=== PATIENT | male | born 1955 | race Caucasian/White ===

== ENCOUNTER 2016-11-03 20:43 | Emergency (ER) | payer BC ==
[2016-11-25] MEDS ORDERED: CRESTOR20 MG PO (13:16)
[2016-11-25] MEDS ORDERED: ASPIRIN EC81 M1 PO (13:17)
[2016-11-25] MEDS ORDERED: MULTI-DAY VITAM1 TAB PO (13:17)
[2016-11-26 08:12] VITALS: BMI 34.1
== END 2016-11-04 01:07 | disposition home or self-care (01) ==
LOC: D.ER 20:43
DX: S43.004A Unspecified dislocation of right shoulder joint, initial encounter (principal); W10.9XXA Fall (on) (from) unspecified stairs and steps, initial encounter; Y93.89 Activity, other specified; Y92.018 Other place in single-family (private) house as the place of occurrence of the external cause

== ENCOUNTER 2016-11-26 05:52 | Day surgery (SDC) | payer BC ==
[~2016-11-26] VITALS: Ht 185.4 cm; Wt 117.0 kg
[~2016-11-26 05:52] MED LIST: ASPIRIN EC81 M1 PO; CRESTOR20 MG PO; MULTI-DAY VITAM1 TAB PO
[2016-11-26 08:12] VITALS: BP 137/72; Ht 185.4 cm; Wt 117.0 kg
[2016-11-26] MEDS ORDERED: DILAUDID2 MG PO (11:00)
--- NOTE | 2016-11-26 11:14 | NUR ---
VANCOMYCIN 1GM INFUSING
--- NOTE | 2016-11-26 12:44 | NUR ---
1215 IV DC WITH CATHER TIP INTACT
--- NOTE | 2016-11-27 14:00 | OP ---
PATIENT NAME: STEPHEN ROGERS MEDICAL RECORD: [id number] :55 LOCATION:[facility] ADMISSION DATE: SURGEON: FRANKY GUTIERREZ MD DATE OF OPERATION: 11/26/2016 Orthopedic Surgery Operative Note PREOPERATIVE DIAGNOSES: 1. Rotator cuff tear of the right shoulder. 2. Severe biceps tendinitis of the right shoulder. 3. Impingement syndrome of the right shoulder. 4. Acromioclavicular arthritis of the right shoulder. POSTOPERATIVE DIAGNOSES: 1. Rotator cuff tear of the right shoulder. 2. Severe biceps tendinitis of the right shoulder. 3. Impingement syndrome of the right shoulder. 4. Acromioclavicular arthritis of the right shoulder. PROCEDURES: 1. Open rotator cuff repair of the right shoulder. 2. Biceps tenodesis of the right shoulder. 3. Subacromial decompression of the right shoulder. 4. Distal clavicle excision of the right shoulder -- arthroscopic above. SURGEON: Franky Gutierrez MD ANESTHESIA: General. INTRAOPERATIVE COMPLICATIONS: None. SUMMARY OF PATHOLOGIC FINDINGS: Consistent with the preoperative MRI and the patient had the above diagnoses and pathology. OPERATIVE SUMMARY IN DETAIL: After obtaining the appropriate preoperative orthopedic surgery consent as well as anesthetic consultation, evaluation and clearance, the patient was brought to the operating room and placed on the operating table in supine position. After general laryngeal mask was administered, the patient was placed in a left lateral decubitus position. All pressure points were well padded to include down leg peroneal pad as well as axillary roll. The patient was held firmly to the operating table using the vacuum pack suction system. Right upper extremity and shoulder were then prepped and draped in routine sterile fashion. The arm was held in the Arthrex traction boom at 30 degrees of forward flexion, 30 degrees of abduction, 10 pounds of traction laterally. Arthroscopy was established in the glenohumeral joint from a posterior portal. Anterior portal was established in the anterior safe interval. Diagnostic arthroscopy revealed the above findings. A transarthroscopic rotator cuff tear portal was created to debride and decorticate the supraspinatus tendinous footprint. The biceps tendon was cut at the base and held. Attention was then turned to the subacromial space. In the subacromial space, excoriation of the coracoacromial ligament was noted. Surface tissue ablation system was utilized to denude the entire undersurface of the coracoacromial ligament as well as a release of the undersurface of the acromion as well as released the coracoacromial ligament to separate anterior arthroscopic portal, distal clavicle was excised for 1 cm. Having completed OPERATIVE REPORT [id number] STEPHEN ROGERS this, attention was turned to the rotator cuff and biceps tenodesis. Biceps tendon was identified, suture was passed and a marine pilot hole for a size 7 tenodesis screw was made in the proximal aspect of the groove and the suture to the biceps tendon was pulled through the tip and the Arthrex tenodesis screw was deployed. Having completed this, a double row rotator cuff fixation was achieved with 2 proximal rows crisscrossed and 2 distal rows resulted in excellent reapproximation of the supraspinatus tendon to the footprint. Having completed this, arthroscopic portals were closed in routine interrupted fashion using 4-0 Prolene. Sterile dressings were applied. The patient was awakened, taken to recovery room in stable condition. All final needle and sponge counts were correct. TRANSINT:[id number] Voice Confirmation ID: [id number] DOCUMENT ID: [id number] MATT OVIEDO, FRANKY CASTILLO at 1400 CC: [id number] DICTATION DATE: 11/26/16 1104 [employer] HAND: 11/26/16 1531 [facility] 11/26/[address] [facility] [address] [place] [address]
== END 2016-11-26 12:30 | disposition home or self-care (01) ==
LOC: D.OPS 05:52 → D.PAN 09:30 → D.OPS 09:30
DX: M75.101 Unspecified rotator cuff tear or rupture of right shoulder, not specified as traumatic (principal); M75.21 Bicipital tendinitis, right shoulder; M75.41 Impingement syndrome of right shoulder; M13.811 Other specified arthritis, right shoulder

== ENCOUNTER → 2017-03-19 11:54 | Outpatient (CLI) | payer BC ==
[2016-11-26 08:12] VITALS: BMI 34.1
[~2017-03-19 11:54] MED LIST changes: +DILAUDID2 MG PO
== END | disposition home or self-care (01) ==
LOC: D.CT 11:54
DX: I70.203 Unspecified atherosclerosis of native arteries of extremities, bilateral legs (principal)

== ENCOUNTER 2018-11-18 08:35 | Day surgery (SDC) | payer BC ==
[~2018-11-18] VITALS: Ht 185.4 cm; Wt 118.8 kg
[~2018-11-18 08:35] MED LIST changes: +ASCORBIC ACID500 MG PO; +FLOMAX0.4 MG PO; +PROBIOTIC1 EAC1 PO; +VITAMIN D31000 UNI2 PO
[2018-11-18 09:48] VITALS: BP 131/87; Ht 185.4 cm; Wt 118.8 kg
[2018-11-18] MEDS ORDERED: AUGMENTIN 875-11 TAB PO (14:37)
[2018-11-18] MEDS ORDERED: HYDROCODON-ACE1 EAC7 PO (14:37)
--- NOTE | 2018-11-18 14:45 | NUR ---
DISCHARGE INSTRUCTIONS REVIEWED WITH PATIENT AND SPOUSE, PATIENT SITTING ON SIDE OF BED, DRESSED, NO UNSTEADINESS, NO COMPLAINTS. DISCHARGED HOME VIA WHEELCHAIR TO PRIVATE VEHICLE WITH SPOUSE
--- NOTE | 2018-12-05 08:45 | OP ---
PATIENT NAME: STEPHEN ROGERS MEDICAL RECORD: [id number] :55 LOCATION:[facility] ADMISSION DATE: SURGEON: ROSARIO ERICKSON MD DATE OF OPERATION: 11/18/2018 PREOPERATIVE DIAGNOSES: Nasal obstruction, bilateral massive nasal polyposis, chronic pansinusitis. POSTOPERATIVE DIAGNOSES: Nasal obstruction, bilateral massive nasal polyposis, chronic pansinusitis. PROCEDURE: Bilateral middle meatal antrostomies, bilateral endoscopic ethmoidectomy, bilateral endoscopic nasal polypectomy, and bilateral inferior turbinate reduction. SURGEON: Rosario Erickson MD ANESTHESIA: General orotracheal. BLOOD LOSS: 5 cc. SPECIMENS: Polyps from the right and left nasal cavities. PACKING: None. COMPLICATIONS: None. DISPOSITION: Recovery stable. DESCRIPTION OF PROCEDURE: He was brought to the operating room and placed in supine position, sedated and intubated by anesthesia. The nose was examined bilaterally using a headlight and nasal speculum. The inferior turbinate and the nasal polyps were injected with a total of less than 2 cc of 1% lidocaine with 1:100,000 epinephrine. I really was not able to visualize anything posteriorly in the nose due to the nasal polyps. Three Afrin pledgets were placed in each side of the nose. The table was turned 90 degrees. Head drape was applied. He was positioned, prepped and draped in usual fashion for nasal surgery. After that, all the Afrin pledgets were removed in both sides of the nose. The left side was addressed first. With all the Afrin pledgets out and using a 0-degree scope, I was able to visualize the root of the middle turbinate. This was then again injected as was as the uncinate, lateral nasal wall, and the polyps more posteriorly with additional 0.25 cc of 1% lidocaine with epinephrine. The right side was done in the same fashion after all the Afrin pledgets were removed. Then, once all the Afrin pledget was removed from both sides, then started on the right side with the Bhavin forceps removing large polyps from the middle meatus and from the superior meatus, some were attached to the posterior septum, some were attached to the medial aspect of the middle turbinate, but just removed multiple massive polyps that were obstructing the entire posterior nasal cavity. Once that was done, the microdebrider was inserted and cleaned out the rest of the middle meatus and the posterior portion of the nasal cavity from the polyps emanating from the superior meatus all that was taken down, allowing good visualization of the middle turbinate, which was really not manipulated was left intact in whole. There were polyps extruding from the middle meatus. Microdebrider was used to take some of those down and then with Bhavin forceps, I was able to insert that and pull large polyps out of OPERATIVE REPORT [id number] STEPHEN ROGERSNE the maxillary sinus and take those down as well. Once that was done, the scope could see into the maxillary sinus. The mucosa looked fairly good. Some edematous changes, but there was a large open maxillary sinus, then no drainage, really was no significant bleeding associated with that. Then the left side was addressed in the same fashion with a large Bhavin forceps to take down multiple large pieces of polyps, mostly from the middle meatus, but also from medial to the middle turbinate as well and 5 large pieces of polyps were removed and then the microdebrider was inserted to clean out the rest of the polyposis from the middle meatus and posteriorly from the nasal cavity giving a good view of the middle turbinate, which again really was not manipulated. The ethmoid cavity was entered inferomedially, taking down the anterior ethmoids and through the grand lamella to the posterior ethmoids as well, removing massive polyps from there. The maxillary sinus was done the same way, taking down polyps there and then evacuated polypoid tissue from the sinus as well, which was suctioned out, creating a nice ostia. The ethmoid cavity was then addressed on the right side as well, entered the cavity inferomedially, taking down the ethmoids from anterior to posterior through the grand lamella, again tremendous amount of polypoid tissue anteriorly, but more posteriorly the sinuses were fairly open when they were entered. Once that was completed, a [place] was used to take down the inferior redundant portion of both inferior turbinates. Suction cautery on a setting of 25 was used to stop any bleeding from the inferior turbinates. They were both outfractured with a [place] elevator. Then, using a large curved olive tip suction, both maxillary sinuses and ethmoid cavities were irrigated repeatedly with saline until they were completely clean, really almost no bleeding. Some mupirocin ointment was placed in the maxillary sinuses and the ethmoid cavities as well. The nasopharynx was normal. There were really no additional visual polyps. Airway was good. Septum had some deviation, but was not too bad, really did not obstruct the airway significantly. With that, the eyes were examined and normal. He was awakened, extubated, and transported to recovery in good condition. No complications. TRANSINT:[id number] Voice Confirmation ID: [id number] DOCUMENT ID: [id number] ROSARIO ERICKSON MD at 0845 CC: [id number] DICTATION DATE: 11/18/18 1246 [employer]: 11/18/18 1318 [facility] 11/18/18 [facility] [address] [place] [address]
--- NOTE | 2018-12-05 08:45 | HP ---
PATIENT: SAE ROGERS MEDICAL RECORD: [id number] ACCOUNT: [id number] LOCATION:[facility] : 55 ADMISSION DATE: 11/18/18 PCP: SAE WOODWARD DO HISTORY AND PHYSICAL EXAMINATION HISTORY: Sae is a 63 years old. He has been having chronic problems with nasal obstruction, massive nasal polyposis, and chronic pansinusitis. He is being admitted for polypectomy and sinus surgery. PAST MEDICAL HISTORY: Includes diverticulitis and BPH. PAST SURGICAL HISTORY: Includes carpal tunnel surgery, ankle fusion, shoulder surgery, and surgery for diverticulitis in 2003. CURRENT MEDICATIONS: Flomax. Low-dose aspirin has been held. ALLERGIES: No known drug allergies. PHYSICAL EXAMINATION: GENERAL: He is healthy appearing and developmentally normal. FACE: Normal and symmetric. No lesions. EYES: Sclerae and conjunctivae are normal. EARS: Canals and TMs are normal. NOSE: Massive nasal polyposis to the floor of the nose, obstructing the nasal cavity. ORAL CAVITY AND OROPHARYNX: Tongue protrudes in midline. Pharynx is normal. NECK: No masses. No adenopathy. CHEST: Clear. CARDIOVASCULAR: Regular rate and rhythm. No murmur. EXTREMITIES: Normal. IMPRESSION: Nasal obstruction, massive nasal polyposis, and chronic pansinusitis. PLAN: Bilateral endoscopic nasal polypectomy, inferior turbinate reduction, anterior ethmoidectomy, and maxillary antrostomies. TRANSINT:[id number] Voice Confirmation ID: [id number] DOCUMENT ID: [id number] ROSARIO MCDONALD MD at 0845 CC: [id number] DICTATION DATE: 11/17/18 1408 [employer]IVE [employer]ATIONS SPECIALIST: 11/17/18 1554 [facility] 11/18/[address] [facility] [address] [place] [address]
== END 2018-11-18 14:45 | disposition home or self-care (01) ==
LOC: D.OPS 08:35 → D.PAN 08:35 → D.OPS 10:50
DX: J34.89 Other specified disorders of nose and nasal sinuses (principal); J33.0 Polyp of nasal cavity; J32.9 Chronic sinusitis, unspecified; Z01.812 Encounter for preprocedural laboratory examination